=== PATIENT | male | born 1950 | race Two or more races ===

== ENCOUNTER → 2020-03-12 | Outpatient (CLI) | payer MEDICARE | END | disposition home or self-care (01) | LOC: MSC 17:30 | PROVIDERS: ATTEND Internal Medicine | DX: Z51.89 Encounter for other specified aftercare (principal); K50.80 Crohn's disease of both small and large intestine without complications; D72.819 Decreased white blood cell count, unspecified; G47.31 Primary central sleep apnea; J44.9 Chronic obstructive pulmonary disease, unspecified; N52.8 Other male erectile dysfunction; E29.1 Testicular hypofunction; I10 Essential (primary) hypertension; M85.80 Other specified disorders of bone density and structure, unspecified site; M19.90 Unspecified osteoarthritis, unspecified site; E11.40 Type 2 diabetes mellitus with diabetic neuropathy, unspecified ==